=== PATIENT | male | born 1940 | race Caucasian/White ===

== ENCOUNTER 2016-10-14 10:01 | Day surgery (SDC) | payer OTHER ==
[~2016-10-14] VITALS: Ht 190.5 cm; Wt 81.3 kg
[~2016-10-14 10:01] MED LIST: CITRACAL D + H1 EACH PO; LEVO-T75 MCG PO; OSTEO BI-FLEX1 EAC1 PO
[2016-10-14 10:29] VITALS: BP 202/94
[2016-10-14] MEDS ORDERED: NORCO 5/3251 TABLET PO (13:57)
[2016-10-14 14:55] VITALS: BP 199/98
[2016-10-14 15:39] VITALS: BP 189/81
[2016-10-14 15:53] VITALS: BP 175/81
[2016-10-14 16:35] VITALS: BP 194/87
== END 2016-10-14 16:49 | disposition home or self-care (01) ==
LOC: SDC 10:01
PROC: 0YU50JZ Supplement Right Inguinal Region with Synthetic Substitute, Open Approach (ICD-10-PCS; principal; 2016-10-14)
DX: K40.90 Unilateral inguinal hernia, without obstruction or gangrene, not specified as recurrent (principal); E03.9 Hypothyroidism, unspecified; M19.90 Unspecified osteoarthritis, unspecified site; Z82.3 Family history of stroke
CPT/HCPCS: C1781; J0690; J2250; J3010; S0020